=== PATIENT | female | born 1990 | race American Indian/Alaskan Native ===

== ENCOUNTER 2020-05-08 22:56 | Emergency (ER) | payer SELFPAY ==
[2020-05-08 23:43] VITALS: BP 109/75
[2020-05-09] MEDS ORDERED: dexAMETHasone 20 MG/5 ML VIAL IM ONE (01:17)
[2020-05-09] MEDS ORDERED: ALBUTEROL 2.5 MG/3 ML NEBU IH ONE (01:17)
--- NOTE | 2020-05-09 01:38 | Emergency Department Report ---
ED Asthma HPI - General Chief Complaint: Adult Asthma Stated Complaint: DIFFICULTY IN BREATHING, ANXIETY Time Seen by Provider: 05/09/20 00:58 Source: patient Mode of arrival: Ambulatory Limitations: No Limitations - History of Present Illness Initial Comments: Patient is a 29-year-old -[place] female with a history of asthma who presents with shortness of breath and nocturnal wheezing for the past 2 days. Patient states symptoms not improved with usual albuterol dose. There has been no fever, chills, nausea vomiting, dizziness or lightheadedness. Patient denies stridor. Patient is a 7-pack-year smoker. Advised not ready for cessation. Patient drove self to ED today she is ambulatory with steady gait with no acute distress. Symptoms are exacerbated by environmental stimuli. Symptoms are relieved by nothing tried. MD Complaint: shortness of breath, wheezing Onset/Timin -: week(s) Asthma History: childhood onset Severity: moderate Associated Symptoms: dry cough. denies: fever, chest pain, hemoptysis, leg edema, syncope Treatments Prior to Arrival: inhaled bronchodilator - Related Data Current Asthma Therapy: inhaled bronchodilator Previous Rx's Medication Instructions Recorded Last Taken Type Albuterol Mdi (or & Nicu Only) 2 puff IH QID PRN #8.5 gram 05/09/20 Unknown Rx [ProAir HFA Inhaler] Azithromycin [Zithromax Z-VALENTINE] 250 mg PO DAILY 5 Days #6 tab 05/09/20 Unknown Rx predniSONE [Deltasone] 40 mg PO QDAY 5 Days #10 tab 05/09/20 Unknown Rx ED Review of Systems ROS: Stated complaint: DIFFICULTY IN BREATHING, ANXIETY Other details as noted in HPI Constitutional: denies: chills, fever Eyes: denies: eye pain, eye discharge, vision change ENT: as per HPI, congestion. denies: throat pain Respiratory: cough, shortness of breath, wheezing Cardiovascular: denies: chest pain, palpitations Endocrine: no symptoms reported Gastrointestinal: denies: abdominal pain, nausea, vomiting, diarrhea Genitourinary: denies: urgency, dysuria, discharge Musculoskeletal: denies: back pain, joint swelling, arthralgia Skin: denies: rash, lesions Neurological: denies: headache, weakness, paresthesias Psychiatric: denies: anxiety, depression Hematological/Lymphatic: denies: easy bleeding, easy bruising ED Past Medical Hx - Past Medical History Previous Medical History?: Yes Hx Psychiatric Treatment: Yes (Anxiety) Hx Asthma: Yes - Surgical History Past Surgical History?: Yes - Social History Smoking Status: Current Every Day Smoker Substance Use Type: None - Medications Home Medications: Home Medications Medication Instructions Recorded Confirmed Last Taken Type Albuterol Mdi (or & Nicu Only) 2 puff IH QID PRN #8.5 gram 05/09/20 Unknown Rx [ProAir HFA Inhaler] Azithromycin [Zithromax Z-VALENTINE] 250 mg PO DAILY 5 Days #6 tab 05/09/20 Unknown Rx predniSONE [Deltasone] 40 mg PO QDAY 5 Days #10 tab 05/09/20 Unknown Rx ED Physical Exam - General Limitations: No Limitations General appearance: alert, in no apparent distress - Head Head exam: Present: atraumatic, normocephalic - Eye Eye exam: Present: normal appearance, PERRL, EOMI Pupils: Present: normal accommodation - ENT ENT exam: Present: normal orophraynx, mucous membranes moist, TM's normal bilaterally, normal external ear exam - Neck Neck exam: Present: normal inspection, full ROM. Absent: tenderness, lymphadenopathy - Respiratory Respiratory exam: Present: normal lung sounds bilaterally, wheezes (mild exp wheezes bilat upper lobs ). Absent: respiratory distress, rales, rhonchi, stridor, chest wall tenderness, prolonged expiratory - Expanded Respiratory Exam Expanded Location: Wheezes: Right, Left, Upper - Cardiovascular Cardiovascular Exam: Present: regular rate, normal rhythm, normal heart sounds. Absent: systolic murmur, diastolic murmur, rubs, gallop - GI/Abdominal GI/Abdominal exam: Present: soft, normal bowel sounds. Absent: tenderness, mass, hernia - Rectal Rectal exam: Present: deferred - Extremities Exam Extremities exam: Present: normal inspection, full ROM. Absent: tenderness, pedal edema, calf tenderness - Back Exam Back exam: Present: normal inspection, full ROM. Absent: tenderness, CVA tenderness (R), CVA tenderness (L), muscle spasm, paraspinal tenderness, rash noted - Neurological Exam Neurological exam: Present: alert, oriented X3, CN II-XII intact, normal gait, reflexes normal - Psychiatric Psychiatric exam: Present: normal affect, normal mood - Skin Skin exam: Present: warm, dry, intact, normal color. Absent: rash ED Course Vital Signs 05/08/20 23:32 Temperature 98.4 F Pulse Rate 62 Respiratory 17 Rate Blood Pressure 109/75 O2 Sat by Pulse 100 Oximetry ED Medical Decision Making - Medical Decision Making symptoms are improved with medication given in ed. plan: [facility] rx for albuterol, prednisone, azithromycin, pt verbalized agreement and understanding of discharge plan. Will follow up with primary care doctor in 2-3 days, pt verbalized agreement and understanding of discharge instructions. Critical care attestation.: If time is entered above; I have spent that time in minutes in the direct care of this critically ill patient, excluding procedure time. ED Disposition Clinical Impression: Asthma Qualifiers: Asthma severity: moderate Asthma persistence: unspecified Asthma complication type: unspecified Qualified Code(s): J45.909 - Unspecified asthma, uncomplicated Disposition: DC- TO HOME OR SELFCARE Is pt being admited?: No Does the pt Need Aspirin: No Condition: Stable Instructions: Asthma (ED) Prescriptions: predniSONE [Deltasone] 40 mg PO QDAY 5 Days #10 tab Albuterol Mdi (or & Nicu Only) [ProAir HFA Inhaler] 2 puff IH QID PRN #8.5 gram PRN Reason: Shortness Of Breath Azithromycin [Zithromax Z-VALENTINE] 250 mg PO DAILY 5 Days #6 tab Referrals: TERRANCE TRIANA MD [Staff Physician] - 3-5 Days Forms: Accompanied Note Time of Disposition: 01:45
== END 2020-05-09 02:15 | disposition home or self-care (01) ==
LOC: ED 22:56
DX: J45.909 Unspecified asthma, uncomplicated (principal); F41.9 Anxiety disorder, unspecified; F17.200 Nicotine dependence, unspecified, uncomplicated; Z79.899 Other long term (current) drug therapy
CPT/HCPCS: 94640; 96372; 99282; J1100